=== PATIENT | female | born 1955 | race Caucasian/White ===

== ENCOUNTER → 2020-06-19 | Outpatient (CLI) | payer MEDICARE ==
--- NOTE | 2020-06-19 10:05 | DEXAMM ---
INDICATION: [id number] SCR FOR OSTEOPOROSIS. COMPARISON: None. TECHNIQUE: Bone density was measured using dual-energy x-ray absorptiometry (DEXA). FINDINGS: AP SPINE L1-L4 BMD 1.677 g/cm2 Young Adult T-Score 3.9 Age Matched Z-Score 4.0. LT FEMUR, TOTAL BMD 1.302 g/cm2 Young Adult T-Score 2.3 Age Matched Z-Score 1.9. LT NECK BMD 1.079 g/cm2 Young Adult T-Score 0.3 Age Matched Z-Score 1.2. RT FEMUR, TOTAL BMD 1.250 g/cm2 Young Adult T-Score 1.9 Age Matched Z-Score 1.6. RT NECK BMD 1.075 g/cm2 Young Adult T-Score 0.3 Age Matched Z-Score 1.1. IMPRESSION: There is normal bone density of the spine. There is normal bone density of the left hip. There is normal bone density of the right hip. FOLLOW-UP: Recommendation for the next bone density exam: 5 years. <Electronically signed by Jason Bernard > 06/19/20 [id number]
== END ==
LOC: M WHC 09:16
PROVIDERS: ATTEND Nurse Practitioner Family
DX: Z13.820 Encounter for screening for osteoporosis (principal); M81.0 Age-related osteoporosis without current pathological fracture